=== PATIENT | female | born 1950 | race Caucasian/White ===

== ENCOUNTER → 2022-06-11 | Outpatient (CLI) | payer MEDICARE ==
--- NOTE | 2022-06-11 19:48 | Diagnostic Imaging Report ---
EXAMINATION: Lumbosacral spine 2 or 3 views. HISTORY: Low back pain COMPARISON: None available. FINDINGS: There are multilevel postoperative changes with bilateral interpedicular screws and intervening rods extending from L2 through S1. Orthopedic hardware appears intact with interbody devices at the L3-L4, L4-L5 and L5-S1 levels. There are compression fractures from L2 through L5, presumably old. If there is a concern for an acute fracture MRI could evaluate for edema. Alignment of the spine is preserved. Marked facet hypertrophy seen throughout the lumbar spine with bone graft also noted. Laminectomies seen at the postoperative levels. Clips incidentally noted in the right upper quadrant. Atherosclerotic disease is seen. IMPRESSION: 1. Multilevel compression deformities age-indeterminate, see above discussion. Postoperative changes grossly unremarkable. 2. Not mentioned in body of the report, there is also an age-indeterminate compression fracture at T11. Dictated by: Dictated on workstation # [id number]
== END ==
LOC: RAD FS 14:39
PROVIDERS: ATTEND Registered Nurse Emergency
DX: M48.55XA Collapsed vertebra, not elsewhere classified, thoracolumbar region, initial encounter for fracture (principal)
CPT/HCPCS: 72100

== ENCOUNTER 2022-06-30 05:37 | Outpatient (CLI) | payer MEDICARE ==
[~2022-06-30] VITALS: Ht 144.8 cm; Wt 81.2 kg
[2022-07-01] MEDS ORDERED: CALC-140 PO (11:17)
[2022-07-01] MEDS ORDERED: TIZA4CAP8 PO (11:17)
[2022-07-01] MEDS ORDERED: OMEP40CA6 PO (11:17)
[2022-07-01] MEDS ORDERED: FOLI1TAB33 PO (11:17)
[2022-07-01] MEDS ORDERED: OXYB-52 PO (11:17)
[2022-07-01] MEDS ORDERED: ROSU10TA28 PO (11:17)
[2022-07-01] MEDS ORDERED: LISI10TA25 PO (11:17)
[2022-07-01] MEDS ORDERED: LEVO88TA68 PO (11:17)
[2022-07-01] MEDS ORDERED: GABA800T10 PO (11:17)
== END 2022-07-01 11:24 | disposition home or self-care (01) ==
LOC: PREOP 05:37
PROVIDERS: ATTEND Surgery
DX: Z01.818 Encounter for other preprocedural examination (principal)

== ENCOUNTER 2022-07-12 08:45 | Day surgery (SDC) | payer MEDICARE ==
[~2022-07-12] VITALS: Ht 144.8 cm; Wt 81.2 kg
[~2022-07-12 08:45] MED LIST: CALC-140 PO; FOLI1TAB33 PO; GABA800T10 PO; LEVO88TA68 PO; LISI10TA25 PO; OMEP40CA6 PO; OXYB-52 PO; ROSU10TA28 PO; TIZA4CAP8 PO
[2022-07-12] MEDS ORDERED: LACTATED RINGERS 1,000 ML IV STA (08:49)
[2022-07-12] MEDS ORDERED: HURRICAINE EXT TUBE (BENZOCAINE) XX PRN (09:00)
[2022-07-12 09:15] VITALS: BP 191/81
--- NOTE | 2022-07-12 09:31 | Progress Note-Pre Operative ---
Pre-Operative Progress Note Date of Available H&P: Jun 22, 2022 Date H&P Reviewed: Jul 12, 2022 Time H&P Reviewed: 09:30 History & Physical: H&P Reviewed, Patient Examed, No changes noted Pre-Operative Diagnosis: Dysphagia, GERD AUDRA SERRANO DO Jul 12, 2022 09:31
--- NOTE | 2022-07-12 10:19 | Anesthesia-General Post-Op ---
MAC Patient Condition Mental Status/LOC: Same as Preop Cardiovascular: Satisfactory Nausea/Vomiting: Absent Respiratory: Satisfactory Pain: Controlled Complications: Absent Post Op Complications Complications None Follow Up Care/Instructions Patient Instructions None needed. Anesthesiology Discharge Order Discharge Order Patient is doing well, no complaints, stable vital signs, no apparent adverse anesthesia problems. No complications reported per nursing. DINAH FARMER CRNA Jul 12, 2022 10:19
[2022-07-12] MEDS ORDERED: proPOfol 200 MG/20 ML (DIPRIVAN) VIAL IV ONE (10:22)
--- NOTE | 2022-07-12 10:41 | Progress Note-Post Operative ---
Post-Operative Progess Note Surgeon (s)/Gas Line Repairer (s) Surgeon AUDRA SERRANO DO Gas Line Repairer: none Pre-Operative Diagnosis Dysphagia, GERD Post-Operative Diagnosis Gastritis Hiatal hernia Esophagitis Procedure & Operative Findings Date of Procedure 07/12/22 Procedure Performed/Findings EGD with bx PROCEDURE NOTE: After informed consent was obtained, the patient was brought to the endoscopy suite, placed in bed in left lateral decubitus position. She was administered IV sedation by the HOSPICE EXECUTIVE DIRECTOR who then monitored vitals the entire time, heart rate, blood pressure and pulse ox and the scope was inserted down the mouth through the esophagus into the stomach. On the way down, noted some mild esophagitis, took a picture, pushed into the stomach, pushed past the antrum into the duodenum. Duodenum looked good. Pulled back and did a biopsy of antrum, then retroflexed the scope, saw small sliding hiatal hernia, took a picture of this and then pulled the scope into the GE junction, took another picture of the hiatal hernia and then did a biopsy of the GE junction. I had also done a biopsy of the body of the stomach and cardia because it looked inflamed. Pushed the scope back into the stomach, suctioned all the air out of the stomach. At this point pulled the scope up the esophagus and out the mouth. The patient tolerated the procedure, and she recovered in endoscopy suite. Anesthesia Type IV sedation by HOSPICE EXECUTIVE DIRECTOR Estimated Blood Loss Estimated blood loss (mL): scant Specimens/Packing Specimens Removed antral bx body of stomach bx cardia bx GE jxn bx AUDRA SERRANO DO Jul 12, 2022 10:41
[2022-07-12 10:42] VITALS: BP 143/74
--- NOTE | 2022-07-12 10:42 | Endoscopy Discharge Instruct ---
Endo Procedure/Findings Findings 1.: Gastritis 2.: Hiatal Hernia Discharge Instructions - Activity: You might feel a little sleepy until tomorrow. This is due to the medicine you received to relax you. Until tomorrow, you should: NOT drive a car, operate machinery or power tools. NOT drink any alcoholic beverages. NOT make any important decisions or sign importortant papers. Do not return to work until tomorrow, unless otherwise instructed. Resume previous activities tomorrow. Diet: Start by taking liquids. If you tolerate liquids, advance to solid food. 1.: EGD in 3 years Notify Physician - If you experience excessive bleeding, unusual abdominal pain, fever, or chest pain, contact your doctor immediately. AUDRA SERRANO DO Jul 12, 2022 10:42
[2022-07-12 10:45] VITALS: BP 142/83
[2022-07-12 11:18] VITALS: BP 176/91
== END 2022-07-12 11:25 | disposition home or self-care (01) ==
LOC: ENDO 08:45
PROVIDERS: ATTEND Surgery
DX: K29.50 Unspecified chronic gastritis without bleeding (principal); K44.9 Diaphragmatic hernia without obstruction or gangrene; Z28.311 Partially vaccinated for COVID-19; K21.00 Gastro-esophageal reflux disease with esophagitis, without bleeding

== ENCOUNTER → 2022-08-10 | Outpatient (CLI) | payer MEDICARE | LOC: CARDFS 11:30 | PROVIDERS: ATTEND Registered Nurse Emergency | DX: I35.2 Nonrheumatic aortic (valve) stenosis with insufficiency (principal); I34.0 Nonrheumatic mitral (valve) insufficiency; I34.81 Nonrheumatic mitral (valve) annulus calcification; I51.7 Cardiomegaly | CPT/HCPCS: 93306 ==

== ENCOUNTER → 2022-09-22 | Outpatient (CLI) | payer MEDICARE ==
[~2022-09-22] MED LIST changes: +CATHETER FLUSH 10 ML SYR IVP PRN; +REGADENOSON 0.4 MG/5 ML SYR (LEXISCAN) IV ONE
[2022-09-22 09:10] VITALS: BP 164/80
--- NOTE | 2022-09-22 15:51 | Cardiology Stress Test Report ---
Stress Test Report Date of Procedure/Referring: Date of Procedure: Sep 22, 2022 PCP Denise Leach Aprn Admitting Physician Admitting Physician: Attending Physician: Jerome Hills MD Baseline Heart Rate: 71 Baseline Blood Pressure: Blood Pressure Systolic: 164 Blood Pressure Diastolic: 80 Baseline Vitals Vital Signs Date Time Temp Pulse Resp B/P (MAP) Pulse Ox O2 Delivery O2 Flow Rate FiO2 09/22/22 09:10 65 164/80 (108) Baseline EKG: Baseline EKG: NSR Summary After explaining the procedure to the patient, she signed a consent and then brought to the stress nuclear laboratory. Patient received 0.4 mg Lexiscan for stress test, ECG, heart rate and blood pressure were monitored continuously. Resting and stress dose of radio tracer were injected, imaging was acquired and reviewed in short axis, horizontal long axis and vertical long axis views. TID: 1.06 SSS: 8 SDS: 5 EF: 87 1. Patient tolerated Lexiscan well 2. Breast attenuation with reversible ischemia involving the basal to mid anterior wall and basal to middle inferior lateral wall. 3. Small left ventricular size with good contractility, ejection fraction 87% Copy Copies To 1: ANTONIO TESFAYE MD, BASHAR J MD Sep 22, 2022 15:51
== END ==
LOC: CARD 08:00
PROVIDERS: ATTEND Internal Medicine Cardiovascular Disease
DX: I25.10 Atherosclerotic heart disease of native coronary artery without angina pectoris (principal); I10 Essential (primary) hypertension
CPT/HCPCS: 78452; 93017; A9502

== ENCOUNTER 2022-10-13 10:46 | Day surgery (SDC) | payer MEDICARE ==
[~2022-10-13] VITALS: Ht 144.8 cm; Wt 83.3 kg
[2022-10-13] VITALS (11 sets, daily range): BP systolic 110–184; BP diastolic 54–83
[~2022-10-13 10:46] MED LIST changes: -CATHETER FLUSH 10 ML SYR IVP PRN; -REGADENOSON 0.4 MG/5 ML SYR (LEXISCAN) IV ONE
[2022-10-13] MEDS ORDERED: NS IV 1000 ML 1,000 ML IV SCH ×2 (11:00→14:15)
[2022-10-13] MEDS ORDERED: LIDOCAINE 1% INJ 30 ML (XYLOCAINE) VIAL ONE (11:02)
[2022-10-13] MEDS ORDERED: NS IV 1000 ML 1,000 ML ONE (11:02)
[2022-10-13] MEDS ORDERED: HEParin (CATH LAB) 2,000 ML IV ONE (11:02)
[2022-10-13 11:36] LABS: HEMATOCRIT 40 % (35-52); HEMOGLOBIN 12.8 g/dL (11.5-16.0); MEAN CORPUSCULAR HEMOGLOBIN 29 pg (25-34); MEAN CORPUSCULAR HGB CONC 32 g/dL (32-36); MEAN CORPUSCULAR VOLUME 91 fL (80-99); MEAN PLATELET VOLUME 8.5 fL (9.0-12.2); PLATELET COUNT 261 10^3/uL (130-400); WHITE BLOOD COUNT 6.5 10^3/uL (4.3-11.0)
[2022-10-13] MEDS ORDERED: GABA800T10 PO (11:40)
[2022-10-13] MEDS ORDERED: OXYB15TA19 PO (11:40)
[2022-10-13] MEDS ORDERED: METHYL FOLATE PO (11:40)
[2022-10-13] MEDS ORDERED: PRED2.5T PO (11:40)
[2022-10-13] MEDS ORDERED: LISI20TA26 PO (11:40)
[2022-10-13 11:48] LABS: INR 0.9 (0.8-1.4)
[2022-10-13 11:55] LABS: ALBUMIN 3.9 GM/DL (3.2-4.5); BILIRUBIN,TOTAL 0.3 MG/DL (0.1-1.0); CALCIUM 9.2 MG/DL (8.5-10.1); CREATININE SERUM 0.73 MG/DL (0.60-1.30); TOTAL PROTEIN 6.9 GM/DL (6.4-8.2)
--- NOTE | 2022-10-13 12:19 | Diagnostic Imaging Report ---
EXAMINATION: Chest 1 view HISTORY: ABN STRESS TEST COMPARISON: None available. FINDINGS: Heart size and pulmonary vasculature are normal. The lungs are clear without consolidation, pleural effusion, or pneumothorax. The osseous structures are intact. IMPRESSION: 1. No acute radiographic abnormality in the chest. Dictated by: Dictated on workstation # [id number]
[2022-10-13] MEDS ORDERED: fentaNYL INJ 100 MCG/2 ML AMP ONE (13:08)
[2022-10-13] MEDS ORDERED: MIDAZOLAM 5 MG/5 ML (VERSED) VIAL ONE (13:08)
--- NOTE | 2022-10-13 13:10 | Cardiac Procedure Note-CS/ASA ---
Pre-Procedure Note Pre-Op Procedure Note Date of Available H&P: Sep 28, 2022 Date H&P Reviewed: Oct 13, 2022 Time H&P Reviewed: 13:10 History & Physical: H&P Reviewed, Patient Examed, No changes noted Pre-Operative Diagnosis: Coronary artery disease Conscious Sedation Pre-Proced Time 13:10 ASA Score 3 For ASA 3 and 4: Consider anesthesia and medical clearance. Also, for patients with a history of failed moderate sedation consider anesthesia. Airway Lungs Heart ASA score ASA 1: a normal healthy patient ASA 2: a patient with a mild systemic disease (mid diabetes, controlled hypertension, obesity ASA 3: a patient with a severe systemic disease that limits activity (angina, COPD, prior Myocardial infarction) ASA 4: a patient with an incapacitating disease that is a constant threat to life (CHF, renal failure) ASA 5: a moribund patient not expected to survive 24 hrs. (ruptured aneurysm) ASA 6: a declared brain- patient whose organs are being harvested. For emergent operations, add the letter E after the classification Mallampati Classification Grade 3 Sedation Plan Analgesia, Amnesia, Plan communicated to team members, Discussed options with patient/fam, Discussed risks with patient/fam The patient is an appropriate candidate to undergo the planned procedure, sedation, and anesthesia. The patient immediately re-assessed prior to indication. ALFRED POTTS MD Oct 13, 2022 13:10
[2022-10-13] MEDS ORDERED: PATIENT MAY USE OWN MEDS, ALL PO SCH (14:15)
--- NOTE | 2022-10-13 14:18 | Discharge Inst-Post CATH ---
Discharge Inst-CATH/EP Problems Reviewed?: Yes Post Cardiac Cath/EP D/C Inst Follow Up/Plan Appointment with Dr. Hills's office in 2 to 4 weeks <b>CARDIAC CATH/EP PROCEDURE DISCHARGE INSTRUCTIONS</b> ACTIVITY * Go Home directly and rest. * Limit activity of the leg (or wrist if it was used) for 7 days including aer obics, swimming, jogging, bicycling, etc. * Restrict stair-climbing for 7 days if possible, if not, climb up with your non-cath leg, then bring together on the same step. * Avoid lifting, pushing, pulling or excessive movement of the affected extremi ty for 7 days. * Customary sexual activity may be resumed after 2 days-use caution not to use a position that strains or causes pain to the affected extremity. * No driving for 24 hours. * NO SMOKING. * Avoid straining for bowel movements for 7 days. * Gentle walking on level ground is allowed. * Returning to work will depend on the type of procedure and the results. Your doctor will discuss this with you. CALL YOUR DOCTOR FOR ANY OF THE FOLLOWING: *If bleeding from the puncture site occurs- Apply gentle pressure to site with clean cloth and call your doctor or EMS. * If a knot or lump forms under the skin, increases in size, or causes pain. * If bruising appears to be worsening or moving further down your leg instead of disappearing. * Temperature above 101 F. CARE OF YOUR GROIN INCISION; * Bruising or purple discoloration of the skin near the puncture site is common. * You may shower only, no bathtub bathing for 5 days. Be careful to avoid slipping as your leg may feel stiff. * If a closure device was used on your femoral artery, please see the attached guide regarding care of the device and your leg. * Leave dressing on FOR 24 hours. CARE OF YOUR WRIST INCISION; * Bruising or purple discoloration of the skin near the puncture site is common. * You may shower. * DO NOT submerge wrist. * Leave dressing on FOR 24 hours. ALFRED HILLS MD Oct 13, 2022 14:18
--- NOTE | 2022-10-13 14:21 | Cardiac Cath Report ---
Cardiac Cath Report Physician (s)/Travel Pt (s) Physician ALFRED POTTS MD Pre-Procedure Diagnosis Pre-Procedure Diagnosis: Coronary artery disease Post-Procedure Note Procedure Start Date: Oct 13, 2022 Procedure Start Time: 14:19 Name of Procedure: Left heart catheterization Findings/Procedure Note PROCEDURE NOTE: 72 years old lady with history of aortic valve stenosis, had an abnormal stress test, scheduled for cardiac catheterization possible PTCA. After explaining the procedure to the patient, all pros and cons were explained, all questions were answered. The patient signed the consent and then she was placed in the cardiac catheterization laboratory. Groin was prepped in SL fashion local anesthesia was used. Sheath placed in the right femoral artery. Raimundo' right and left catheter were used to access the coronary system. Raimundo right catheter was used to cross the aortic valve with dental hygiene administrative assistant of [employer] wire. Pressure was measured, pullback LV to aorta was done. At the end of the procedure the sheath was removed. Closure device was deployed FINDINGS: Hemodynamics LV 129/5, end-diastolic pressure of 5 Aorta 128/58 mean of 87 ANATOMY: Left Main is free of obstructive disease Left Anterior Descending has mild disease nonobstructive disease Left Circumflex has mild disease nonobstructive disease Right Coronary Artery has mild disease nonobstructive disease LV Gram was not done, pressure was measured CONCLUSION: 1. Mild coronary artery disease nonobstructive disease 2. Moderate aortic valve stenosis, mean gradient 26 mmHg with normal left ventricular end-diastolic pressure DISCUSSION AND RECOMMENDATION: Medical therapy is recommended no intervention is recommended Anesthesia Type: Conscious Sedation Estimated blood loss (mL): 10 ml Contrast Amount: 31 ml Total Radiation Dose: 278 mGy Post-Procedure Diagnosis Post-operative diagnosis: Chest pain Coronary artery disease Aortic valve stenosis Hypertension ALFRED POTTS MD Oct 13, 2022 14:21
[2022-10-13] MEDS ORDERED: HYDROcodone/APAP 5 MG/325 MG (LORTAB) TAB PO ONE (16:45)
== END 2022-10-13 18:40 | disposition home or self-care (01) ==
LOC: CATH 10:46 → SDC 14:34 → CATH 18:40
PROVIDERS: ATTEND Internal Medicine Cardiovascular Disease
DX: I25.10 Atherosclerotic heart disease of native coronary artery without angina pectoris (principal); I35.0 Nonrheumatic aortic (valve) stenosis; I10 Essential (primary) hypertension; Z79.899 Other long term (current) drug therapy; I65.23 Occlusion and stenosis of bilateral carotid arteries; E03.9 Hypothyroidism, unspecified; E78.5 Hyperlipidemia, unspecified; M06.9 Rheumatoid arthritis, unspecified; R01.1 Cardiac murmur, unspecified
CPT/HCPCS: 71045; 80053; 80061; 85027; 85610; 85730; 87081; 93005; 93458; C1760; C1769; C1894; 36415